=== PATIENT | female | born 1985 | race Caucasian/White ===

== ENCOUNTER 2016-10-14 15:50 | Emergency (ER) | payer MEDICAID ==
--- NOTE | ~2016-10-14 | ER ---
PATIENT'S NAME: EZ CLIFFORD [facility] AGE: 31 Y [address] ROOM: [place] [address] LOCATION: [facility] ADMIT DATE: 10/14/2016 ER/Outpatient Report DISCHARGE DATE: 10/14/2016 FAMILY PHYSICIAN: Darrius Poe MD ATTENDING PHYSICIAN: Waqar Rowe Time of Arrival: 1550 hours. Time of Evaluation: 1605 hours. CHIEF COMPLAINT: Vomiting, diarrhea. HISTORY OF PRESENT ILLNESS: This is a 31-year-old female who is well known to us here in the emergency room, who comes in today with chief complaint of vomiting and diarrhea. She states it has been going on for the past 2 days. She does state that she has not been running any fevers. She states that she has had no troubles with urinary urgency or frequency. She states she has had multiple diarrhea, bowel movements, and multiple emesis. She states that she has had no recent travel, no recent antibiotic therapy, and no one else that she has been around has been ill. ALLERGIES: PENICILLIN, CODEINE, SULFA, KEFLEX, LATEX, AND PEDIAZOLE. PAST MEDICAL HISTORY: Heart murmur, chronic low back pain, and cholecystectomy. SOCIAL HISTORY: She smokes less than a pack a day for last 15 years. Denies any drug or alcohol use. REVIEW OF SYSTEMS: A 10-point review of system was completed and was negative with exception of those discussed in the HPI. PHYSICAL EXAMINATION: VITAL SIGNS: Height 5 feet 7 inches stated, weight 118.6 kg taken, blood pressure is 143/85, pulse 84, respirations 16, temperature 97.3 degrees tympanically, saturation is 97% on room air. [place] Coma Score is 15. GENERAL: Alert, obese female, in no obvious distress. HEENT: Head: Normocephalic. Eyes: Pupils are equal and reactive to light. She does display moist mucous membranes. LUNGS: Clear to auscultation bilaterally. No wheezes or crackles. Normal respiratory effort. PATIENT'S NAME: EZ CLIFFORD [facility] AGE: 31 Y [address] ROOM: [place] [address] LOCATION: [facility] ADMIT DATE: 10/14/2016 ER/Outpatient Report DISCHARGE DATE: 10/14/2016 FAMILY PHYSICIAN: Darrius Poe MD ATTENDING PHYSICIAN: Waqar Rowe HEART: Regular rate and rhythm. No lifts, thrills, or murmurs. ABDOMEN: Soft. She has mild tenderness in all 4 quadrants. No guarding, no rebound tenderness. She has good bowel sounds throughout. No masses are palpated. EXTREMITIES: No clubbing, cyanosis, or edema. There is full range of motion of all limbs. LABORATORY DATA: CBC: White count is 10.6, hemoglobin is 16.1, platelets 340. ANC is 6.7. CMS: Potassium is 3.6, otherwise unremarkable. Urinalysis is negative for any infection. Ova and parasite screen, stool sample was negative. C. difficile was negative. Fecal white blood cells, rare. Occult blood, negative. IMPRESSION: Gastroenteritis. ASSESSMENT AND PLAN: We did start an IV here in the emergency room. Did give her a liter of IV fluids along with 4 mg of Zofran. She did rest comfortably her entire stay. Her abdomen remained a nonsurgical abdomen. We did give her reassurance. We will dismiss her to home with a prescription for Zofran to use as directed and we did dismiss her from work as well. She needs to continue to push fluids small amounts frequently and then may advance to a bland diet. She should follow up with her primary care physician if needed. The patient understands and agrees with care. LOVE FELTON PA-C FOR DO STANLEY GOFF/katie /[id number] d: 10/15/16611 t: 10/21/16 06, OUTPATIENT REPORT
[2016-10-14 16:21] LABS: BILIRUBIN URINE NEGATIVE (NEGATIVE); BLOOD URINE NEGATIVE /UL (NEGATIVE); GLUCOSE URINE NEGATIVE (NEGATIVE); KETONE URINE NEGATIVE (NEGATIVE); LEUKOCYTES URINE 25 /UL (NEGATIVE); NITRITE URINE NEGATIVE (NEGATIVE); PROTEIN URINE NEGATIVE (NEGATIVE); UROBILINOGEN URINE NORMAL (NORMAL)
[2016-10-14 16:30] LABS: BASOPHIL # 0.1 K/uL (0.0-0.2); BASOPHIL % 0.7 %; EOSINOPHIL # 0.2 K/uL (0.0-0.5); EOSINOPHIL % 1.4 %; HEMOGLOBIN 16.1 g/dL (11.0-15.0); IMMATURE GRANULOCYTE % 0.3 %; LYMPHOCYTE # 2.9 K/uL (0.8-4.0); LYMPHOCYTE % 27.4 %; MCHC 32.9 gm/dL (32.0-36.5); MCV 91.2 fl (83.0-98.0); MONOCYTE # 0.7 K/uL (0.0-1.0); MONOCYTE % 6.9 %; MPV 10.3 fl (9.4-12.4); NEUTROPHIL # (ANC) 6.7 K/uL (1.8-7.8); NEUTROPHIL % 63.3 %; NRBC % 0 /100WBC (0-0.00); PLATELET COUNT 340 K/uL (150-450); RBC 5.37 M/uL (3.50-5.50); RDW-CV 12.9 % (11.9-14.6); WBC 10.6 K/uL (4.0-11.0)
[2016-10-14 16:49] LABS: ALBUMIN 4.2 gm/dL (3.5-5.0); ALK PHOS 84 IU/L (33-138); ALT 27 IU/L (12-78); ANION GAP 13.6 (10.0-19.0); AST 17 IU/L (10-40); BLOOD UREA NITROGEN 10 mg/dL (6-24); CHLORIDE 104 mMol/L (96-110); CO2 25 mMol/L (22-32); CREATININE 0.8 mg/dL (0.5-1.1); ESTIMATED GFR (MDRD EQUATION) > 60; POTASSIUM 3.6 mMol/L (3.7-5.1); SODIUM 139 mMol/L (135-145); TOTAL BILIRUBIN 1.2 mg/dL (0.0-1.5); TOTAL PROTEIN 8.1 g/dL (6.0-8.4)
[2016-10-14 17:31] LABS: COLOR URINE YELLOW (YELLOW); TURBIDITY URINE CLEAR (CLEAR)
[2016-10-14 17:35] LABS: BACTERIA URINE RARE (NEGATIVE); HYALINE CAST URINE 0-2 #/LPF (NEGATIVE); RBC URINE 0-2 #/HPF (NEGATIVE); WBC URINE 0-2 #/HPF (NEGATIVE)
[2016-11-27] MEDS ORDERED: HYDROCODON-ACE1 EAC4 PO (10:53)
[2016-11-27] MEDS ORDERED: FLECTOR1 EACH TOP (10:53)
[2016-11-27] MEDS ORDERED: PRILOSEC OTC20 MG PO (10:54)
== END 2016-10-14 17:36 | disposition disaster alternative care site (69) ==
LOC: GMED 15:50
PROVIDERS: Physician Assistant Medical
DX: K52.9 Noninfective gastroenteritis and colitis, unspecified (principal); F17.210 Nicotine dependence, cigarettes, uncomplicated; Z88.0 Allergy status to penicillin; Z88.5 Allergy status to narcotic agent; Z88.2 Allergy status to sulfonamides; Z88.1 Allergy status to other antibiotic agents; Z91.040 Latex allergy status; Z88.8 Allergy status to other drugs, medicaments and biological substances; Z90.49 Acquired absence of other specified parts of digestive tract
CPT/HCPCS: J2405; J7030

== ENCOUNTER 2016-12-05 08:06 | Day surgery (SDC) | payer MEDICAID ==
[~2016-12-05] VITALS: Ht 172.7 cm; Wt 120.9 kg
--- NOTE | ~2016-12-05 | DS ---
PATIENT'S NAME: EZ CLIFFORD [facility] AGE: 31 Y [address] ROOM: [address] [address] LOCATION: [facility] ADMIT DATE: 12/05/2016 Discharge Summary DISCHARGE DATE: 12/06/2016 FAMILY PHYSICIAN: Darrius Poe MD ATTENDING PHYSICIAN: Li Jerez REASON FOR ADMISSION: The patient was admitted as a scheduled admission for an elective procedure. The elected procedure was a left L5-S1 microdiskectomy. The patient had presented with clinical and radiological findings consistent with lumbar radiculopathy secondary to left L5-S1 disk herniation. TREATMENT RENDERED: On the same day of surgery, the patient was taken to the operating room and she underwent left L5-S1 microdiskectomy. The surgery was uncomplicated. The patient's postoperative course was uneventful. By the day of surgery or the following day, i.e. today, the patient had been up, walking independently. Her foot felt numb, but she was able to use it normally. The pain was much improved. Her dressing was changed. The wound was clean, dry, and intact. DISCHARGE PLANNING: The patient is being released home today with appointment made for her to follow up in the clinic in 2 weeks' time. FINAL DIAGNOSIS: Lumbar disk herniation status post lumbar L5-S1 microdiskectomy. LI JEREZ MD CNO/modl /[id number] CC: Darrius Poe MD d: 12/07/16 0307 t: 12/13/162022, DISCHARGE SUMMARY
--- NOTE | ~2016-12-05 | OR ---
PATIENT'S NAME: EZ CLIFFORD [facility] AGE: 31 Y [address] ROOM: [address] [address] LOCATION: [facility] ADMIT DATE: 12/05/2016 OR/Procedure Report DISCHARGE DATE: 12/06/2016 FAMILY PHYSICIAN: Darrius Poe MD ATTENDING PHYSICIAN: Li Rueda SURGEON: Li Rueda MD YARDER PUNCHER: Elina Ackerman. DATE OF PROCEDURE: 12/05/2016 PREOPERATIVE DIAGNOSIS: Lumbar disk herniation with lumbar radiculopathy. POSTOPERATIVE DIAGNOSIS: Lumbar disk herniation with lumbar radiculopathy. PROCEDURES PERFORMED: 1. Left L5-S1 hemilaminotomy, medial facetectomy, and foraminotomy with diskectomy. 2. Use of operative microscope. ANESTHESIA: General. ANESTHESIA PROVIDER: Hill Mcdonald MD HISTORY: This patient is a 31-year-old female who presented with low back pain radiating down the left leg. Symptoms are worsened by coughing or sneezing. The patient had an MRI scan which showed a lateral disk herniation on the left side at L5-S1. She had tried epidural steroid injections without benefit. Surgery was, therefore, recommended. The above procedure, benefits, and risks were discussed with the patient, and with her consent, she was brought to the operating room for surgery. PROCEDURE IN DETAIL: In the operating room, the patient was placed in a supine position. Anesthesia was induced, and she was intubated. She was then rolled to a prone position on a Samuel table, taking care to protect all pressure points. The incision line was marked out in the midline of her lower back, and the whole area was prepped and draped in a sterile fashion. Local anesthesia was infiltrated. The incision was then opened with a #10 blade and deepened to the fascial layer. Owing to the patient's body habitus, it was necessary to make a slightly longer incision than would have been needed for the surgery under usual circumstances. Self-retaining retractors were applied. The fascia was opened, and the incision was deepened until the tips of the spinous processes became visible. The paraspinous muscles were dissected off the left L5 and S1 spinous processes and laminae. The L5-S1 interlaminar space became visible. Self-retaining retractors were adjusted, and an intraoperative x-ray was obtained to verify that we were at the desired level. PATIENT'S NAME: EZ CLIFFORD [facility] AGE: 31 Y [address] ROOM: [address], [place] [address] LOCATION: [facility] ADMIT DATE: 12/05/2016 OR/Procedure Report DISCHARGE DATE: 12/06/2016 FAMILY PHYSICIAN: Darrius Poe MD ATTENDING PHYSICIAN: Li Rueda The microscope was brought in. Under microscopic vision, the adjacent edges of the left L5 and S1 laminae were drilled down. The medial facet between them was also drilled down. The ligamentum flavum was exposed. The ligamentum flavum was removed piecemeal to expose the underlying dura and the nerve root next to it. A little bit more of a medial facetectomy was performed to expose the lateral edge of the nerve root. A #4 [place] instrument was then used to define the lateral edge of the nerve root and to mobilize it towards the midline. The nerve root was held back with the Love retractor, and the disk became visible. It was bulging a fair amount and was compressing the nerve root. Coagulation was carried out on top of the disk. The disk was then incised, and pituitary rongeur was used to pull out disk material. The reverse-angled curette was used to push down more disk material into the disk space. This was also pulled out with a pituitary rongeur. Disk removal continued until I felt that the nerve root had been satisfactorily decompressed. A careful search was made for any remaining disk material and that the nerve roots are in the axilla of the nerve. The foramen was also probed to make sure that it was patent, and indeed it was. A search was made around the area cephalad from the nerve root shoulder. Again, no more disk material was discovered. Coagulation was carried out using the bipolar, and further hemostasis was achieved with the cottonoid and fibrillar. Irrigation was used to wash out the debris. At the end of the procedure, the nerve root was seen to be completely decompressed and going out into its foramen without any obstruction. Some ropivacaine was placed around the nerve root. The incision was then closed with appropriate suture materials. A sterile dressing was applied. The patient was rolled back to a supine position. Her anesthesia was reversed. She was extubated and taken to the recovery room to complete her recovery. I was present at and performed every aspect of this procedure, assisted at some stages by operating room nurses. There were no apparent intraoperative complications. Swabs, needles, and instruments were all accounted for at the end of the case. Estimated blood loss was less than 50 mL, and there was no reason for blood transfusion. I expect the patient to benefit from this procedure. PATIENT'S NAME: EZ CLIFFORD [facility] AGE: 31 Y [address] ROOM: [address] [address] LOCATION: [facility] ADMIT DATE: 12/05/2016 OR/Procedure Report DISCHARGE DATE: 12/06/2016 FAMILY PHYSICIAN: Darrius Poe MD ATTENDING PHYSICIAN: Li Rueda LI RUEDA MD CNO/modl /[id number] d: 12/06/16 1213 t: 12/13/16 2020, OPERATIVE SUMMARY
[~2016-12-05 08:06] MED LIST: FLECTOR1 EACH TOP; HYDROCODON-ACE1 EAC4 PO; PRILOSEC OTC20 MG PO
--- NOTE | 2016-12-05 17:24 | NUR ---
Pt here from PACU at 1615. She has back dressing that has small shadow drng near bottom. She was nauseated in PACU and vomitted 100 ml. Had zofran and phenergan there. Nausea better now. Also rates pain at 10. had fentanyl in PACU. Given dilaudid 0.5 IV at 1642 and says pain starting to get slightly better. She uses a fentanyl patch and hydrocodone at home. Has had back problems for years she says and chronic pain. CSM lower extremities WNL. Has numbness Lt anterior and lateral thigh. Incontinent in PACU and voided 150 ml here on bedpan to your credit. Pt states she voids about every 30 minutes normally. IS use at 2500. Pt is on O2 at 2 liters.
--- NOTE | 2016-12-06 05:47 | NUR ---
Significant Event: A/Ox3. Turns bed alarm off and takes herself to bathroom. Uses bed side commode. Dressing to back with small amount of drainage at the bottom. VSS. Lots of nausea. Pt states she voids every 30 minutes. Pleasant and cooperative with cares. Follow up:
[2016-12-06] MEDS ORDERED: VALIUM5 MG PO (11:01)
== END 2016-12-06 11:23 | disposition disaster alternative care site (69) ==
LOC: UNDOADMIN 08:06 → GSDC 08:06 → G3N 08:06 → EDSTATUS 11:00 → G3N 17:29 → GSDC 12-06 11:23 → G3N 12-06 11:23
PROC: 0SB20ZZ Excision of Lumbar Vertebral Disc, Open Approach (ICD-10-PCS; principal; 2016-12-05)
PROC: 01NB0ZZ Release Lumbar Nerve, Open Approach (ICD-10-PCS; 2016-12-05)
DX: M51.17 Intervertebral disc disorders with radiculopathy, lumbosacral region (principal); E78.5 Hyperlipidemia, unspecified; F32.9 Major depressive disorder, single episode, unspecified; E66.01 Morbid (severe) obesity due to excess calories; Z68.41 Body mass index [BMI] 40.0-44.9, adult; F17.200 Nicotine dependence, unspecified, uncomplicated; Z88.0 Allergy status to penicillin; Z88.2 Allergy status to sulfonamides; Z88.8 Allergy status to other drugs, medicaments and biological substances; Z90.49 Acquired absence of other specified parts of digestive tract; Z98.890 Other specified postprocedural states
CPT/HCPCS: J0690; J1040; J1100; J1170; J2405; J2550; J2795; J3010; J3370; J7030

== ENCOUNTER 2016-12-09 18:09 | Emergency (ER) | payer MEDICAID ==
--- NOTE | ~2016-12-09 | ER ---
PATIENT'S NAME: EZ CLIFFORD [facility] AGE: 31 Y [address] ROOM: [place] [address] LOCATION: ED ADMIT DATE: 12/09/2016 ER/Outpatient Report DISCHARGE DATE: 12/09/2016 FAMILY PHYSICIAN: Physician, Unknown ATTENDING PHYSICIAN: Luana Espana Time of Arrival: 1809 hours. Time of Evaluation: 1830 hours. CHIEF COMPLAINT: Postop back surgery burning sensation. HISTORY OF PRESENT ILLNESS: This is a 31-year-old female, who presents to the ER, who states she had back surgery done by Dr. Jerez on Thursday. She states that she after surgery had some numbness to her left leg including her 3rd, 4th, and 5th toes. She states Dr. Jerez knew about that prior to her dismissal. She has had no fever or chills. She states she has had no drainage from her incision site. She states she was lying on the couch this evening and had a burning sensation in her back. She has no difficulty with bowel or bladder and no injury. The patient denies any other problems at this time. She has been using her Valium and [place] as directed. ALLERGIES AND MEDICATIONS: Please see medication list in nurse's notes. PAST MEDICAL HISTORY: Heart murmur. PAST SURGICAL HISTORY: Left L5-S1 hemilaminectomy with medial facetectomy and foraminectomy with diskectomy; cholecystectomy; knee surgery; tonsil and adenoids; tubes in her ears; and . SOCIAL HISTORY: She smokes cigarettes. Denies any drug or alcohol use. REVIEW OF SYSTEMS: A 10-point review of systems was completed and was negative with the exception of those discussed in the HPI. PHYSICAL EXAMINATION: VITAL SIGNS: Height 5 feet 7 inches stated, weight 120.3 kg taken, blood pressure is 111/69, pulse 98, respirations 18, temperature 98.4 degrees tympanically, saturations 97% on room air. [place] Coma Score is 15. PATIENT'S NAME: EZ CLIFFORD [facility] AGE: 31 Y [address] ROOM: [place] [address] LOCATION: ED ADMIT DATE: 12/09/2016 ER/Outpatient Report DISCHARGE DATE: 12/09/2016 FAMILY PHYSICIAN: Physician, Unknown ATTENDING PHYSICIAN: Luana Espana GENERAL: An alert, obese female, in mild distress. She is lying in the position. HEENT: Head: Normocephalic. She does display moist mucous membranes. LUNGS: Clear to auscultation bilaterally. No wheezes or crackles. Normal respiratory effort. HEART: Regular rate and rhythm. No lifts, thrills, or murmurs. EXTREMITIES: No clubbing or cyanosis. She does have full range of motion of all limbs. NEURO: Cranial nerves 2 through 12 grossly intact. Gait is steady without assistance. SKIN: She has an incision to her lower back. It is intact. There is no active drainage. There is no erythema. No tenderness around the area. LABORATORY DATA AND X-RAYS: None were done. IMPRESSION: Burning sensation to her lower back postop surgery. ASSESSMENT AND PLAN: We did monitor the patient here for quite some time. Did discuss the patient's care with Dr. Espana. We did start an IV and did give her a total of 100 mcg of fentanyl all over her ER stay. She states that she is feeling much better. I am going to dismiss her to home. She needs ice. She needs to continue doing her home medications, and I would like her to call Dr. Jerez's office tomorrow with an update and have her be evaluated by him at their discretion. The patient and the patient's friends understand and agree with care. LOVE FELTON PA-C FOR MD STANLEY DARDEN/kaite /[id number] d: 12/10/16 0029 t: 12/11/16 0539, OUTPATIENT REPORT
[~2016-12-09 18:09] MED LIST changes: +VALIUM5 MG PO
== END 2016-12-09 19:41 | disposition disaster alternative care site (69) ==
LOC: GMED 18:09
DX: L76.82 Other postprocedural complications of skin and subcutaneous tissue (principal); F17.210 Nicotine dependence, cigarettes, uncomplicated; Z88.5 Allergy status to narcotic agent; Z88.1 Allergy status to other antibiotic agents; Z88.0 Allergy status to penicillin; Z88.2 Allergy status to sulfonamides; Z90.49 Acquired absence of other specified parts of digestive tract; Z98.890 Other specified postprocedural states
CPT/HCPCS: J3010

== ENCOUNTER 2017-02-27 09:35 | Emergency (ER) | payer MEDICAID ==
--- NOTE | ~2017-02-27 | ER ---
PATIENT'S NAME: EZ CLIFFORD [facility] AGE: 31 Y [address] ROOM: [place] [address] LOCATION: ED ADMIT DATE: 02/27/2017 ER/Outpatient Report DISCHARGE DATE: 02/27/2017 FAMILY PHYSICIAN: Darrius Poe MD ATTENDING PHYSICIAN: Harpreet Espitia TIME OF ARRIVAL: 09:35. TIME SEEN: 10:06. IDENTIFICATION: A 31-year-old female. CHIEF COMPLAINT: Back pain. HISTORY OF PRESENT ILLNESS: The patient is a 31-year-old female, who has chronic back pain, had a left L5- S1 microdiskectomy performed [address] Jerez. She is here with increase in pain. When I asked her when it got worse, she said "it has been worse" and then she states that "it is just really kicked my ass in the past 24 hours." She has Eagle prescribed at home with no relief. She last took it last evening. No pain medication today. She has had increased frequency of urination which she states is normal for her. No fever or chills. She has left leg numbness which is also normal for her. She has an appointment on Thursday with Dr. Jerez for visit and an MRI but she could not control the pain, so presented to the emergency room today. ALLERGIES: PENICILLIN, CODEINE, SULFA, PEDIAZOLE, KEFLEX, AND LATEX. CURRENT MEDICATIONS: 1. Eagle p.r.n. 2. Flector patch 1.3% changed every 12 hours. 3. Prilosec [id number]. 4. Proventil inhaler p.r.n. MEDICAL PROBLEMS: 1. Asthma. 2. Lumbar disc disease, status post microdiskectomy. 3. Anxiety and depression. PRIOR SURGERIES: PATIENT'S NAME: EZ CLIFFORD [facility] AGE: 31 Y [address] ROOM: [place] [address] LOCATION: [facility] ADMIT DATE: 02/27/2017 ER/Outpatient Report DISCHARGE DATE: 02/27/2017 FAMILY PHYSICIAN: Darrius Poe MD ATTENDING PHYSICIAN: Harpreet Espitia 1. Microdiskectomy, L5-S1. 2. section. 3. Cholecystectomy. 4. Tonsillectomy and adenoidectomy. 5. Tympanostomy tubes. 6. Bilateral knee surgeries. SOCIAL HISTORY: The patient lives here in [place]. She is unemployed. Tobacco use, 1/3 pack per day for 15+ years. Alcohol use, denies. Drug use, denies. REVIEW OF SYSTEMS: All systems reviewed and negative other than what is noted in the HPI. Last menstrual period is current at this time. The patient has had no bowel or bladder problems other than increased frequency of urination which is normal for her. FAMILY HISTORY: No pertinent family history. PHYSICAL EXAMINATION: VITAL SIGNS: Height 5 feet 7 inches and weight 120.5 kg. Blood pressure 137/65, pulse 80, respirations 18, temperature 98.4, and sats 98%. GENERAL: A 31-year-old female, who was on her phone, playing games. Most of the history taking and physical examination. Rates her pain 10/10 but appears to be in mild distress. HEAD: Normocephalic, atraumatic. EARS: TMs translucent both ears. EYES: Pupils equal and reactive to light and accommodation. Extraocular movements intact. NOSE: Mucosa pink. No lesions. MOUTH: No lesions. Pharynx benign. NECK: Supple. No lymphadenopathy. LUNGS: Clear to auscultation. HEART: Regular rate and rhythm. ABDOMEN: Soft, nondistended, nontender. SKIN: [place], warm, and dry. No lesions or rashes. NEUROLOGICAL: No focal deficit other than decreased sensation in the left lower extremity which is not new for her. She has normal strength. Reflexes are normal. BACK: The Flector patch was removed. She has no swelling or tenderness. Incision is clean, dry, and healed. No erythema and no drainage. An IV was started. The patient was given fentanyl for pain with no relief. Dilaudid was given with some relief. Zofran was given for nausea. PATIENT'S NAME: EZ CLIFFORD [facility] AGE: 31 Y [address] ROOM: [place], [place] [address] LOCATION: [facility] ADMIT DATE: 02/27/2017 ER/Outpatient Report DISCHARGE DATE: 02/27/2017 FAMILY PHYSICIAN: Darrius Poe MD ATTENDING PHYSICIAN: Harpreet Espitia DIAGNOSTIC STUDIES: UA: 5 to 10 white cells, 0 to 2 epithelial cells, few bacteria. Urine hCG negative. Urine culture pending. Sodium 140, potassium 4.2, chloride 112, CO2 of 21, BUN 11, creatinine 0.8, and blood sugar 98. Liver enzymes normal. CRP less than 0.29. Hemoglobin 15.9, hematocrit 47.7, platelets 271, and white count 8.5 with a normal differential. Sed rate 8. MRI of her lumbar spine with and without contrast, per Dr. Jerez, L5-S1 partial diskectomy, enhancing scar at the left foramina and left lateral recess. No recurrent or significant residual disc protrusion. Dr. Jreez evaluated the patient in the emergency room. IMPRESSION AND PLAN: 1. Chronic back pain. 2. Three month status post lumbar microdiskectomy with no evidence of recurrent disc herniation or abnormalities per MRI. PLAN: Continue current medications. No heavy lifting. The patient has been referred to Dr. BARNEY Powell, pain management. Appointment scheduled for March [address] Powell's office will contact the patient to give her a specific time. She can follow up with her primary care physician as needed. The patient understands and all questions have been answered. HARPREET ESPITIA MD CAR/modl /[id number] d: 02/28/171910 t: 03/01/17 0834, OUTPATIENT REPORT
--- NOTE | ~2017-02-27 | CON ---
PATIENT'S NAME: JOAQUIN FROST [facility] AGE: 31 Y [address] ROOM: [place] [address] LOCATION: [facility] ADMIT DATE: 02/27/2017 Consultation DISCHARGE DATE: 02/27/2017 FAMILY PHYSICIAN: Darrius Poe MD ATTENDING PHYSICIAN: Luana Espana DATE OF CONSULTATION: 02/27/2017 REFERRING PHYSICIAN: Luana Espana MD REASON FOR CONSULTATION: Back pain. PATIENT IDENTIFICATION: Joaquin Frost is a 31-year-old female. PRESENTING COMPLAINT: Back pain. HISTORY OF PRESENT ILLNESS: The patient has had a history of chronic back pain and she did have left L5-S1 microdiskectomy performed, December 05, 2016, by myself. Her current back pain is across the lower back area and also goes into the hips. It does not radiate down her legs. The patient also has an appointment to see me on March 01, 2017, but the pain was so severe she came to the emergency room today instead. PAST MEDICAL HISTORY: Significant for back surgery as mentioned earlier. She also has asthma. CURRENT MEDICATIONS: Please see chart. ALLERGIES: PENICILLIN, CODEINE, SULFA. FAMILY HISTORY: No family history relevant to present problems. SOCIAL HISTORY: The patient smokes cigarettes. REVIEW OF SYSTEMS: A 10-point review of systems was carried out. The only abnormal findings are as described in the history of present illness. PATIENT'S NAME: JOAQUIN FROST [facility] AGE: 31 Y [address] ROOM: [place] [address] LOCATION: [facility] ADMIT DATE: 02/27/2017 Consultation DISCHARGE DATE: 02/27/2017 FAMILY PHYSICIAN: Darrius Poe MD ATTENDING PHYSICIAN: Luana Espana PHYSICAL EXAMINATION: GENERAL: The patient is a young female, who appeared to be in some distress when I saw her. VITAL SIGNS: Blood pressure is 137/65, pulse rate is 80. NEUROLOGIC: Speech is intact. Cranial nerves: No deficits seen. Motor examination: The patient has normal strength in all the major muscle groups of her upper and lower extremities bilaterally. Gait: The patient is able to ambulate to the bathroom unassisted. CARDIOVASCULAR: Heart sounds are present. RESPIRATORY: The patient is not short of breath at bedside. EXTREMITIES: No cyanosis or clubbing. SKIN: No skin rashes or skin masses. BACK: Back incision has healed well. There is no swelling or tenderness. REVIEW OF IMAGING STUDIES: The patient has had a repeat lumbar spine MRI done today. The MRI shows no evidence of recurrent or residual disc herniation. IMPRESSION: A 31-year-old female with chronic low back pain, status post lumbar microdiskectomy performed almost 3 months ago. MEDICAL DECISION MAKING: I discussed the situation with the patient and explained the findings to her. At this time, there is no indication for neurosurgical intervention. The disk herniation she had is no longer seen on the current MRI scan. There is no sign of infection. I have referred the patient to Pain Management and I gave an appointment for her to see Dr. Saige Powell. The appointment is for March 25, 2017. Dr. Powell's office will contact the patient to fix a specific time for her. I have not made any appointment to follow the patient up in the clinic, but I will be happy to see her again if there is a definite neurosurgical situation. MD WAGNER VORAO/modl /[id number] d: 02/28/17 0053 t: 03/07/17 1811, CONSULTATION REPORT
[2017-02-27 10:30] LABS: BASOPHIL # 0.1 K/uL (0.0-0.2); BASOPHIL % 0.7 %; EOSINOPHIL # 0.3 K/uL (0.0-0.5); EOSINOPHIL % 3.4 %; HEMATOCRIT 47.7 % (33.0-46.0); HEMOGLOBIN 15.9 g/dL (11.0-15.0); IMMATURE GRANULOCYTE % 0.2 %; LYMPHOCYTE # 2.1 K/uL (0.8-4.0); LYMPHOCYTE % 24.7 %; MCH 31.1 pg (27.0-34.0); MCHC 33.3 gm/dL (32.0-36.5); MCV 93.2 fl (83.0-98.0); MONOCYTE # 0.5 K/uL (0.0-1.0); MONOCYTE % 5.5 %; MPV 10.3 fl (9.4-12.4); NEUTROPHIL # (ANC) 5.6 K/uL (1.8-7.8); NEUTROPHIL % 65.5 %; NRBC % 0 /100WBC (0-0.00); PLATELET COUNT 271 K/uL (150-450); RBC 5.12 M/uL (3.50-5.50); WBC 8.5 K/uL (4.0-11.0)
[2017-02-27 10:46] LABS: ALBUMIN 3.6 gm/dL (3.5-5.0); ALK PHOS 87 IU/L (33-138); ALT 23 IU/L (12-78); ANION GAP 11.2 (10.0-19.0); AST 14 IU/L (10-40); BLOOD UREA NITROGEN 11 mg/dL (6-24); CALCIUM 9.1 mg/dL (8.5-10.5); CHLORIDE 112 mMol/L (96-110); CO2 21 mMol/L (22-32); CREATININE 0.8 mg/dL (0.5-1.1); POTASSIUM 4.2 mMol/L (3.7-5.1); SODIUM 140 mMol/L (135-145); TOTAL BILIRUBIN 0.4 mg/dL (0.0-1.5); TOTAL PROTEIN 7.2 g/dL (6.0-8.4)
[2017-02-27 11:56] LABS: BILIRUBIN URINE NEGATIVE (NEGATIVE); BLOOD URINE NEGATIVE /UL (NEGATIVE); COLOR URINE COLORLESS (YELLOW); GLUCOSE URINE NEGATIVE (NEGATIVE); KETONE URINE NEGATIVE (NEGATIVE); LEUKOCYTES URINE 100 /UL (NEGATIVE); NITRITE URINE NEGATIVE (NEGATIVE); PH URINE 6.5 (4.0-8.0); PROTEIN URINE NEGATIVE (NEGATIVE); TURBIDITY URINE CLEAR (CLEAR); UROBILINOGEN URINE NORMAL (NORMAL)
[2017-02-27 12:12] LABS: BACTERIA URINE FEW (NEGATIVE); EPITHELIAL URINE 0-2 #/HPF (NEGATIVE); RBC URINE NEGATIVE #/HPF (NEGATIVE)
== END 2017-02-27 16:20 | disposition disaster alternative care site (69) ==
LOC: GMED 09:35
PROVIDERS: Family Medicine
DX: M54.5 Low back pain (principal); G89.29 Other chronic pain; J45.909 Unspecified asthma, uncomplicated; F41.9 Anxiety disorder, unspecified; F32.9 Major depressive disorder, single episode, unspecified; F17.210 Nicotine dependence, cigarettes, uncomplicated; Z88.0 Allergy status to penicillin; Z88.1 Allergy status to other antibiotic agents; Z88.2 Allergy status to sulfonamides; Z88.5 Allergy status to narcotic agent; Z91.040 Latex allergy status; Z98.890 Other specified postprocedural states; Z90.49 Acquired absence of other specified parts of digestive tract; Z90.89 Acquired absence of other organs; Z79.899 Other long term (current) drug therapy
CPT/HCPCS: A9577; J1170; J2405; J3010